=== PATIENT | female | born 1985 | race Caucasian/White ===

== ENCOUNTER 2019-05-01 10:04 | Inpatient (IN) | payer BC ==
[~2019-05-01] VITALS: Ht 170.2 cm; Wt 54.5 kg
[2019-05-01] MEDS ORDERED: LACTATED RINGERS 1,000 ML IV SCH (10:43)
[2019-05-01] MEDS ORDERED: GABAPENTIN 300 MG CAPSULE PO STA (10:44)
[2019-05-01] MEDS ORDERED: ACETAMINOPHEN 500 MG TABLET PO STA (10:44)
[2019-05-01] MEDS ORDERED: PLEASE ENTER HEIGHT AND WEIGHT MC SCH (11:00)
[2019-05-01] MEDS ORDERED: PLEASE ENTER ALLERGIES MC SCH (11:00)
[2019-05-01] MEDS ORDERED: VIT SL (11:22)
[2019-05-01] MEDS ORDERED: OCTR30VI3 IM (11:22)
[2019-05-01] MEDS ORDERED: ONDA8TAB9 PO (11:22)
[2019-05-01] MEDS ORDERED: POLY17PO5 PO (11:22)
[2019-05-01 11:36] VITALS: BP 97/63
[2019-05-01] MEDS ORDERED: HYDROmorphone 2 MG/ML, 1ML IVPush PRN ×3 (12:00→18:30)
[2019-05-01] MEDS ORDERED: OXYcodone 5 MG/5 ML ORAL.SOL UDC PO PRN ×5 (12:00→22:30)
[2019-05-01] MEDS ORDERED: hydrALAzine 20 MG/ML, 1ML IV PRN ×2 (12:00→18:30)
[2019-05-01] MEDS ORDERED: EPHEDRINE 50 MG/ML, 1ML IVPush PRN (12:00)
[2019-05-01] MEDS ORDERED: LABETALOL 5MG/ML, 20ML IV PRN (12:00)
[2019-05-01] MEDS ORDERED: ONDANSETRON 2MG/ML, 2ML IV PRN ×2 (12:00→22:30)
[2019-05-01] MEDS ORDERED: MEPERIDINE/PF 25MG/ML,1ML IVPush PRN ×2 (12:00→18:30)
[2019-05-01 12:13] LABS: HCG UR SG 1.033 (1.003-1.030)
[2019-05-01] MEDS ORDERED: BUPIVACAINE/PF 0.5% ONE ×2 (12:42→17:02)
[2019-05-01] MEDS ORDERED: MIDAZOLAM 1 MG/ML, 2ML ONE ×2 (12:49→17:27)
[2019-05-01] MEDS ORDERED: FENTANYL PF 100 MCG/2ML ONE ×4 (12:49→19:02)
[2019-05-01] MEDS ORDERED: PROPOFOL 10 MG/ML, 20ML ONE ×2 (13:01→18:02)
[2019-05-01] MEDS ORDERED: SUCCINYLCHOLINE 20 MG/ML, 10ML ONE (13:03)
[2019-05-01] MEDS ORDERED: LIDOCAINE-MPF 2% ,5ML ONE (13:04)
[2019-05-01] MEDS ORDERED: ONDANSETRON 2MG/ML, 2ML ONE ×3 (13:16→18:02)
[2019-05-01] MEDS ORDERED: KETOROLAC 30 MG/1 ML ONE (13:16)
[2019-05-01] MEDS ORDERED: EPINEPHRINE 1 MG/ML, 1ML INFIL ONE (13:31)
[2019-05-01] MEDS: FENTANYL PF 100 MCG/2ML IV PRN ×2 (14:51→14:58)
[2019-05-01] MEDS ORDERED: PROMETHAZINE 25 MG/ML, 1ML ONE (14:52)
[2019-05-01] MEDS ORDERED: PROMETHAZINE 25 MG/ML, 1ML IV PRN ×2 (16:00→18:30)
[2019-05-01] MEDS ORDERED: EPINEPHRINE 1 MG/ML, 1ML ONE (17:02)
[2019-05-01] MEDS ORDERED: ONDANSETRON 2MG/ML, 2ML IVPush PRN (17:30)
[2019-05-01] MEDS ORDERED: POLYETHYLENE GLYCOL 17 GM PACKET PO PRN (17:30)
[2019-05-01] MEDS ORDERED: HYDROmorphone 2 MG/ML, 1ML IV PRN (17:30)
[2019-05-01] MEDS ORDERED: CEFOTETAN PMX 1GM/50ML 50 ML ONE (18:02)
[2019-05-01] MEDS ORDERED: NEOSTIGMINE 1 MG/ML, 10ML ONE (18:02)
[2019-05-01] MEDS ORDERED: DEXAMETHASONE 4 MG/ML, 1ML ONE (18:02)
[2019-05-01] MEDS ORDERED: ROCURONIUM 10MG/ML,5ML ONE (18:02)
[2019-05-01] MEDS ORDERED: GLYCOPYRROLATE 0.2MG/1ML, 5ML ONE (18:02)
[2019-05-01] MEDS ORDERED: BUPIVACAINE/PF 0.25% ONE (18:03)
[2019-05-01] MEDS ORDERED: DIAZEPAM 5 MG/ML, 2ML IVPush PRN (18:30)
[2019-05-01] MEDS ORDERED: DIPHENHYDRAMINE 50 MG/ML, 1ML IVPush PRN (18:30)
[2019-05-01] MEDS ORDERED: ACETAMINOPHEN 325 MG TABLET PO PRN (18:30)
[2019-05-01] MEDS ORDERED: MIDAZOLAM 1 MG/ML, 2ML IV PRN (18:30)
[2019-05-01] MEDS ORDERED: FENTANYL PF 100 MCG/2ML IV PRN (18:30)
[2019-05-01] MEDS ORDERED: ALBUTEROL/IPRATROPIUM 2.5MG/0.5MG, 3 ML NPPB PRN (18:30)
[2019-05-01] MEDS ORDERED: SUGAMMADEX 200 MG/2 ML IVPush ONE (19:21)
[2019-05-01] MEDS: SODIUM CHLORIDE FLUSH 10ML SYR IVF SCH (21:00)
[2019-05-01 21:30] VITALS: BP 102/66
[2019-05-01] MEDS ORDERED: LORazepam 2 MG/ML, 1ML IV PRN (22:30)
[2019-05-01] MEDS ORDERED: LORazepam 1MG TABLET PO PRN (22:30)
[2019-05-01] MEDS ORDERED: POTASSIUM CHLORIDE 20 MEQ in D5%-LACTATED RINGERS 1,000 ML IV SCH (22:30)
[2019-05-01] MEDS: HYDROmorphone 2 MG/ML, 1ML IVPush PRN (23:29)
[2019-05-02 00:43] VITALS: BP 101/67
[2019-05-02 03:39] VITALS: BP 95/55
[2019-05-02] MEDS ORDERED: ONDANSETRON 2MG/ML, 2ML IVPush PRN (05:00)
[2019-05-02] MEDS ORDERED: PROMETHAZINE 25 MG/ML, 1ML IM PRN (05:00)
[2019-05-02] MEDS ORDERED: CEFOTETAN PMX 1GM/50ML 50 ML IVPB SCH (06:00)
[2019-05-02 07:24] VITALS: BP 102/58
[2019-05-02] MEDS: HYDROmorphone 2 MG/ML, 1ML IVPush PRN ×5 (07:47→15:30)
[2019-05-02] MEDS: SODIUM CHLORIDE FLUSH 10ML SYR IVF SCH (09:00)
[2019-05-02 10:30] VITALS: BP 95/63
[2019-05-02] MEDS ORDERED: ENOXAPARIN 40 MG/0.4 ML SQ SCH (12:00)
[2019-05-02 12:45] VITALS: BP 101/58
[2019-05-02 15:25] VITALS: BP 113/64
[2019-05-02] MEDS ORDERED: ONDA4TAB7 PO (16:56)
[2019-05-02] MEDS ORDERED: OXYC5CAP2 PO (16:56)
== END 2019-05-02 17:54 | disposition home or self-care (01) | DRG 391 ==
LOC: OUT 10:04 → 4NE 16:30 → OUT 22:50 → 4NE 05-02 07:39
PROVIDERS: ADMIT Surgery; ATTEND Surgery
PROC: 0DWDXUZ Revision of Feeding Device in Lower Intestinal Tract, External Approach (ICD-10-PCS; 2019-05-01)
PROC: 0DHA4UZ Insertion of Feeding Device into Jejunum, Percutaneous Endoscopic Approach (ICD-10-PCS; principal; 2019-05-01 13:00)
DX: K31.84 Gastroparesis (principal); E43 Unspecified severe protein-calorie malnutrition; Z68.1 Body mass index [BMI] 19.9 or less, adult; K94.19 Other complications of enterostomy; Y83.8 Other surgical procedures as the cause of abnormal reaction of the patient, or of later complication, without mention of misadventure at the time of the procedure; Y92.238 Other place in hospital as the place of occurrence of the external cause; Z90.49 Acquired absence of other specified parts of digestive tract
CPT/HCPCS: 74245; J3490; J7121; S0020; 81025; B4087; G0378; J0171; J1100; J1170; J1650; J1885; J2250; J2405; J2550; J2704; J2710; J3010; J3480; J0330; J7120